=== PATIENT | female | born 1945 | race Caucasian/White ===

== ENCOUNTER 2023-08-11 10:03 | Emergency (ER) | payer MEDICARE, MEDICAID ==
[~2023-08-11] VITALS: Ht 167.6 cm; Wt 55.6 kg
[~2023-08-11 10:03] MED LIST: ASCO-261 PO; ASPI-1265 PO; CALC-1021 PO; CHOLECALCIFEROL PO; EMPA10TA PO; INSU100I27 SQ; KRIL500C PO; LISI2.5T14 PO; LUTE1CAP4 PO; ROSU10TA2 PO; ROSU5TAB PO; SITA1TAB6 PO; TURM500C7 PO; UBID100C16 PO
[2023-08-11 10:11] VITALS: TEMP 97.8
[2023-08-11] MEDS ORDERED: AMOX-117 PO (14:24)
[2023-08-11 15:04] VITALS: BP 147/70; PULSE 104; RESP 16; O2SAT 97
== END 2023-08-11 15:59 | disposition home or self-care (01) ==
LOC: ER 10:03
DX: J32.9 Chronic sinusitis, unspecified (principal); E78.00 Pure hypercholesterolemia, unspecified; I10 Essential (primary) hypertension; E11.9 Type 2 diabetes mellitus without complications; G89.29 Other chronic pain; Z90.49 Acquired absence of other specified parts of digestive tract; Z90.710 Acquired absence of both cervix and uterus; Z56.0 Unemployment, unspecified; Z88.8 Allergy status to other drugs, medicaments and biological substances; Z79.2 Long term (current) use of antibiotics; Z79.899 Other long term (current) drug therapy; Z85.72 Personal history of non-Hodgkin lymphomas
CPT/HCPCS: 99283

== ENCOUNTER 2025-01-12 11:03 | Emergency (ER) | payer MEDICARE, MEDICAID ==
[~2025-01-12] VITALS: Ht 167.6 cm; Wt 57.3 kg
[2025-01-12 11:05] VITALS: BP 148/44; PULSE 80; RESP 16; TEMP 98.2; O2SAT 98
[2025-01-12] MEDS ORDERED: AMOX500C4 PO (12:53)
--- NOTE | 2025-01-12 12:55 | Physician Documentation ---
HPI ~ General Chief Complaint: Tooth Problem Stated Complaint: ABSCESS TOOTH Time Seen by MD: 12:45 OK to notify your PCP?: Yes Primary Medical Doctor: in process of getting a new one Source: patient Mode of Arrival: POV Exam Limitations: no limitations History of Present Illness HPI Comment 79-year-old female with chief complaint left lower dental pain which started two days ago. Last dental clean was a month ago states she goes to the dentist every six months for dental cleanings. Has never had any problems with this tooth before. No pre arrival treatment. Pain worsens when she chews on her left side and pain radiates into left ear. She also states this morning she noticed some swelling in his area No fever, chills, nausea, sore throat, headache, neck pain, chest pain. Medication Reconciliation Allergies: Coded Allergies: tramadol (Verified Allergy, Mild, VOMITING, 08/11/23) ondansetron (Verified Allergy, Unknown, 08/11/23) codeine (Verified Adverse Reaction, Intermediate, NAUSEA, 08/11/23) Scheduled Ascorbic Acid (Vitamin C), PO DAILY, (Reported) Aspirin (Aspirin), 1 TAB.CHEW PO DAILY, (Reported) Calcium Carbonate/Vitamin D3 (Caltrate 600 + D Soft Chew Tab), PO DAILY, (Reported) Empagliflozin (Jardiance), PO DAILY, (Reported) Insulin Detemir (Levemir Flextouch), 10 UNITS SQ DAILY, (Reported) Krill Oil (Krill Oil), 500 MG PO DAILY, (Reported) Lisinopril (Lisinopril), 1 TABLET PO DAILY, (Reported) Lutein/Zeaxanthin (Lutein-Zeaxanthin 25-5 Mg Sfgl), 1 EACH PO DAILY, (Reported) Rosuvastatin Calcium (Crestor), 1 TAB PO DAILY Rosuvastatin Calcium* (Crestor*), 0.5 TABLET PO DAILY, (Reported) Sitagliptin Phos/Metformin HCl (Janumet 50-1,000 mg Tablet), 1 TABLET PO BID, (Reported) Turmeric Root Extract (Turmeric), 500 MG PO DAILY, (Reported) Ubidecarenone (Coq-10), 300 MG PO DAILY, (Reported) [D3 Soft Gels], 2,000 INTLU PO DAILY, (Reported) Past Medical History Past Medical History: High Cholesterol, Hypertension, Diabetes, Chronic Back Pain, Lymphoma Past Surgical History: appendectomy, hysterectomy, orthopedic surgeries Alcohol Use: None Drug Use: none Lives with: S/O Lives In: Home Occupation: unemployed Review of Systems All Other Systems at this time: Reviewed and Negative Physical Exam Vital Signs: Temperature: 98.2, Source: Oral, Heart Rate: 80, Respiratory Rate: 16, BP: 148/44, Pulse Oximetry: 98, Weight: 57.300 Oxygen Flow Rate: 0 Physical Exam GENERAL: Alert, no acute distress. HEENT: NCAT, EOMI, PERRL, LEFT LOWER MOLAR TTP AND GINGIVA ON THE BUCCAL SIDE IS ERYTHEMATOUS AND TTP. normal oropharynx, moist oral mucosa. NECK: Supple, trachea midline. NO CERVICAL LAD OR TTP. CARDIAC: Regular rate and rhythm, no murmurs, rubs, or gallops. RESPIRATORY: Equal breath sounds, clear to auscultation bilaterally, no respiratory distress. MUSCULOSKELETAL: Normal gait. NEUROLOGICAL: Awake, alert, and oriented x 3. SKIN: Warm/dry, no pallor, no rash. PSYCH: Alert and appropriate. Affect congruent with mood. Speech is clear. Good eye contact. Progress Results/Orders Results/Orders Vital Signs 01/12/25 11:05 Temp 98.2 Pulse 80 Resp 16 B/P (MAP) 148/44 Pulse Ox 98 O2 Flow Rate 0 Medical Decision Making Differential Dx:Considerations: Include: Alveolar fracture, Alveolar osteitis, ANUG, Facial Cellulitis, Periapical abscess, Peridontal abscess, Post-extraction bleeding, Pulpitis, Tooth avulsion, Tooth eruption, Tooth Fracture, Trigeminal neuralgia, Tooth subluxation Departure Time of Disposition: 12:52 Disposition: 01 HOME / SELF CARE / HOMELESS Impression: Primary Impression: Dental abscess Condition: Stable Discharge Instructions: Dental Abscess Additional Instructions: F/U WITH DENTIST START ANTIBIOTIC SWISH WITH WARM SALT WATER Referrals: NO PRIMARY CARE PROVIDER (PCP) Prescriptions Amoxicillin (Amoxicillin) 500 Mg Capsule 1 CAP PO Q8H for 10 Days, #30 CAP Prov: GUSTAVO AVILA 01/12/25 Education Educated: Patient Educated regarding: diagnosis, treatment, need for follow up Signature Scribe Signature: X Attestation: GUSTAVO BYRD Jan 12, 2025 12:55
== END 2025-01-12 13:06 | disposition home or self-care (01) ==
LOC: ER 11:03
DX: K04.7 Periapical abscess without sinus (principal); E11.9 Type 2 diabetes mellitus without complications; E78.00 Pure hypercholesterolemia, unspecified; I10 Essential (primary) hypertension; Z88.5 Allergy status to narcotic agent; Z88.6 Allergy status to analgesic agent; Z88.8 Allergy status to other drugs, medicaments and biological substances; Z90.49 Acquired absence of other specified parts of digestive tract; Z90.710 Acquired absence of both cervix and uterus
CPT/HCPCS: 99283